=== PATIENT | female | born 1970 ===

== ENCOUNTER 2018-07-10 18:12 | Emergency (ER) | payer BC, OTHER ==
[2018-07-10 19:09] LABS: CALCIUM 8.9 mg/dl (8.5-10.1); CARBON DIOXIDE 25.8 mEq/L (21-32); CREATININE 0.71 mg/dl (0.60-1.00); POTASSIUM 3.7 mMol/L (3.5-5.1)
[2018-07-10 19:12] VITALS: RESP 18; TEMP 98
[2018-07-10 19:59] VITALS: BP 138/84; PULSE 71; O2SAT 98
== END 2018-07-10 19:58 | disposition home or self-care (01) ==
LOC: ED 18:12
DX: E11.9 Type 2 diabetes mellitus without complications (principal); R63.1 Polydipsia; R35.0 Frequency of micturition; R53.83 Other fatigue
CPT/HCPCS: 36415; 80048; 82962; 99282; 99283

== ENCOUNTER 2018-08-24 07:10 | Day surgery (SDC) | payer OTHER ==
[2018-08-24] MEDS ORDERED: BUPIVACAINE/EPI 0.5% 10 ML SOL INFIL ONE (07:50)
[2018-08-24] MEDS ORDERED: LIDOCAINE HCL 1% MPF 30 SOL ONE (08:14)
[2018-08-24] MEDS ORDERED: PROPOFOL 500 MG/50 ML EMU IV ONE (08:14)
[2018-08-24] MEDS ORDERED: FENTANYL 100MCG/2ML SOL ONE (08:14)
[2018-08-24 09:32] VITALS: PULSE 66
[2018-08-24 10:05] VITALS: BP 137/94; RESP 16; TEMP 96.7; O2SAT 96
== END 2018-08-24 10:05 | disposition home or self-care (01) ==
LOC: SURG 07:10
PROVIDERS: ATTEND Surgery
DX: D17.1 Benign lipomatous neoplasm of skin and subcutaneous tissue of trunk (principal)
CPT/HCPCS: 82962; 99001; J3010; A6402; J2001; J2704

== ENCOUNTER 2018-11-02 10:59 | Emergency (ER) | payer OTHER ==
[2018-11-02 11:38] VITALS: RESP 18
[2018-11-02] MEDS ORDERED: KETOROLAC TROMETHAMINE 30 MG/ML SOL IV ONE (11:45)
[2018-11-02] MEDS ORDERED: ONDANSETRON HCL 4 MG/2 ML SOL IV ONE (11:46)
[2018-11-02 11:47] LABS: BASOPHILS % (AUTO) 1 % (0-3); EOSINOPHILS % (AUTO) 5 % (0-9); HEMATOCRIT 45 % (35-47); HEMOGLOBIN 13.8 gm/dl (12.0-15.5); LYMPHOCYTES % (AUTO) 33.1 % (10-50); MEAN CORPUSCULAR HEMOGLOBIN 25.1 pg (27.0-32.0); MEAN CORPUSCULAR HGB CONC 30.9 gm/dl (32.0-36.0); NEUTROPHILS % (AUTO) 55.2 % (37-80)
[2018-11-02] MEDS ORDERED: ONDANSETRON HCL 4 MG/2 ML SOL ONE (11:47)
[2018-11-02] MEDS ORDERED: KETOROLAC TROMETHAMINE 30 MG/ML SOL ONE (11:47)
[2018-11-02 11:49] VITALS: TEMP 97.2
[2018-11-02 11:53] LABS: LACTIC ACID 1.1 mMol/L (0.0-2.0)
[2018-11-02 11:55] LABS: MEAN CORPUSCULAR VOLUME 81 fL (81-99)
[2018-11-02] MEDS: SODIUM CHLORIDE 0.9% 1000ML 1,000 ML IV SCH ×3 (11:55→14:02)
[2018-11-02 12:03] LABS: CARBON DIOXIDE 25.7 mEq/L (21-32)
[2018-11-02 12:04] LABS: ALBUMIN 3.8 gm/dl (3.4-5.0); BILIRUBIN,TOTAL 0.5 mg/dl (0.2-1.0); CALCIUM 8.9 mg/dl (8.5-10.1); CREATININE 0.66 mg/dl (0.60-1.00); TOTAL PROTEIN 7.8 gm/dl (6.4-8.2)
[2018-11-02 13:10] LABS: APPEARANCE,URINE Clear; BILIRUBIN,URINE NEGATIVE (NEGATIVE); COLOR,URINE Yellow; GLUCOSE, URINE (UA) NEGATIVE (NEGATIVE); KETONES,URINE TRACE (NEGATIVE); LEUKOCYTE ESTERASE ,URINE TRACE (NEGATIVE); NITRATE,URINE NEGATIVE (NEGATIVE); OCCULT BLOOD,URINE NEGATIVE (NEG-TRACE); PH,URINE 5.5; UROBILINOGEN,URINE 0.2 (0.2-1.0 EU)
[2018-11-02 13:22] LABS: BACTERIA TRACE (< 1+); CRYSTALS NEGATIVE (0-3 AVE/HPF); EPITHELIAL CELLS 0-2 (SQUAMOUS); RBC,URINE 0-2 (0-3AV/HPF)
[2018-11-02] MEDS ORDERED: ACETAMINOPHEN 500 MG 500 MG TAB PO ONE (14:25)
[2018-11-02] MEDS ORDERED: ACETAMINOPHEN 500 MG 500 MG TAB ONE (14:26)
[2018-11-02 15:16] VITALS: BP 102/62; PULSE 58; O2SAT 99
== END 2018-11-02 15:08 | disposition home or self-care (01) ==
LOC: ED 10:59
DX: K44.9 Diaphragmatic hernia without obstruction or gangrene (principal); R10.11 Right upper quadrant pain
CPT/HCPCS: 74177; 80053; 81001; 83605; 83690; 85025; 87077; 87088; 87186; 96365; 96374; 96375; 99283; 99285; J1885; J2405; Q9967